=== PATIENT | male | born 1960 | race African-American/Black ===

== ENCOUNTER 2025-02-19 16:29 | Observation (INO) | payer OTHER ==
[~2025-02-19] VITALS: Ht 172.7 cm; Wt 83.3 kg
[2025-02-19] MEDS ORDERED: ROSU5TAB49 PO (16:58)
[2025-02-19 17:36] LABS: BASO # 0.0 10^3/uL (0.0-0.2); BASO % 0.3 % (0.0-1.0); EOS # 0.0 10^3/uL (0.0-0.5); EOS % 0.2 % (0.0-3.0); LYMPH # 0.8 10^3/uL (1.5-5.0); LYMPH % 6.9 % (24.0-44.0); MONO # 0.7 10^3/uL (0.0-0.8); MONO % 5.8 % (2.0-8.0); NEUTROPHILS # 10.0 10^3/uL (1.5-8.5); NEUTROPHILS % 86.5 % (36.0-66.0); PLATELET COUNT, AUTOMATED 157 10^3/uL (150-450)
[2025-02-19 18:05] LABS: CALCIUM LEVEL 8.7 MG/DL (8.3-10.6); CARBON DIOXIDE LEVEL 32 MMOL/L (20-31); CHLORIDE LEVEL 100 MMOL/L (98-107); CREATININE FOR GFR 0.94 MG/DL (0.70-1.30); GLOMERULAR FILTRATION RATE > 90.0 (>49); POTASSIUM SERUM 4.2 MMOL/L (3.5-5.1); SODIUM LEVEL 141 MMOL/L (136-145)
[2025-02-19] MEDS ORDERED: ISOVUE-370 76% 100 ML VIAL As Ordered ONE (18:10)
[2025-02-19 19:00] LABS: CK-MB VALUE MASS < 1.0 NG/ML (<3.6)
[2025-02-19 19:02] LABS: CPK CREATINE PHOSPHOKINASE 206 U/L (46-171)
[2025-02-19] MEDS ORDERED: MOM 30 ML SUSPENSION UDC PO PRN (19:20)
[2025-02-19] MEDS ORDERED: MV-M1TAB59 PO (19:36)
[2025-02-19] MEDS ORDERED: VITA1TAB35 PO (19:36)
[2025-02-19] MEDS ORDERED: HOME MED LIST COMPLETE! XX SCH (19:40)
[2025-02-19 20:30] LABS: INR 1.16
[2025-02-19 21:26] VITALS: BP 118/80; TEMP 98; O2SAT 95
[2025-02-19] MEDS: APIXABAN 5 MG TAB PO SCH (21:31)
[2025-02-20 00:10] VITALS: BP 118/63; TEMP 97.9; O2SAT 97
[2025-02-20 04:36] VITALS: BP 129/67; TEMP 98.8; O2SAT 94
[2025-02-20 07:15] LABS: PLATELET COUNT, AUTOMATED 155 10^3/uL (150-450)
[2025-02-20 07:42] LABS: ALT/SGPT 24 U/L (7.0-40); AST/SGOT 21 U/L (<34); CALCIUM LEVEL 8.4 MG/DL (8.3-10.6); CARBON DIOXIDE LEVEL 30 MMOL/L (20-31); CHLORIDE LEVEL 103 MMOL/L (98-107); CREATININE FOR GFR 0.84 MG/DL (0.70-1.30); GLOMERULAR FILTRATION RATE > 90.0 (>49); MAGNESIUM LEVEL 2.0 MG/DL (1.8-2.4); POTASSIUM SERUM 3.7 MMOL/L (3.5-5.1); SODIUM LEVEL 142 MMOL/L (136-145)
[2025-02-20 08:24] VITALS: BP 127/71; TEMP 98.9; O2SAT 93
[2025-02-20 12:35] VITALS: BP 123/72; TEMP 99.7; O2SAT 91
[2025-02-20] MEDS: AUGMENTIN 875 MG TAB PO ONE (14:13)
[2025-02-20 16:11] VITALS: BP 119/56; TEMP 100.4; O2SAT 95
[2025-02-20] MEDS: ACETAMINOPHEN 325 MG TAB PO PRN (16:46)
[2025-02-20 20:07] VITALS: BP 125/82; TEMP 99.9; O2SAT 93
[2025-02-20] MEDS: AUGMENTIN 875 MG TAB PO SCH (20:16)
[2025-02-21 04:41] VITALS: BP 136/65; TEMP 100.3; O2SAT 92
[2025-02-21 07:23] LABS: BASO # 0.0 10^3/uL (0.0-0.2); BASO % 0.4 % (0.0-1.0); EOS # 0.1 10^3/uL (0.0-0.5); EOS % 0.8 % (0.0-3.0); LYMPH # 1.2 10^3/uL (1.5-5.0); LYMPH % 14.1 % (24.0-44.0); MONO # 0.7 10^3/uL (0.0-0.8); MONO % 8.4 % (2.0-8.0); NEUTROPHILS # 6.4 10^3/uL (1.5-8.5); NEUTROPHILS % 76.1 % (36.0-66.0); PLATELET COUNT, AUTOMATED 171 10^3/uL (150-450)
[2025-02-21 07:41] VITALS: TEMP 100.1
[2025-02-21 07:44] LABS: CALCIUM LEVEL 9.2 MG/DL (8.3-10.6); CARBON DIOXIDE LEVEL 30 MMOL/L (20-31); CHLORIDE LEVEL 104 MMOL/L (98-107); CREATININE FOR GFR 0.92 MG/DL (0.70-1.30); GLOMERULAR FILTRATION RATE > 90.0 (>49); POTASSIUM SERUM 4.3 MMOL/L (3.5-5.1); SODIUM LEVEL 142 MMOL/L (136-145)
[2025-02-21] MEDS ORDERED: ELIQ5TAB PO (08:20)
[2025-02-21 08:39] VITALS: BP 135/78; TEMP 99.4; O2SAT 92
[2025-02-21 12:00] VITALS: BP 134/82; TEMP 98.5; O2SAT 96
[2025-02-21] MEDS ORDERED: AMOX875T2 PO (13:21)
[2025-02-21 22:32] LABS: CARDIOLIPIN IGA ANTIBODY < 2.0 APL-U/mL (<20.0); CARDIOLIPIN IGG ANTIBODY < 2.0 GPL-U/mL (<20.0); CARDIOLIPIN IGM ANTIBODY < 2.0 MPL-U/mL (<20.0)
[2025-02-22 22:57] LABS: PROTEIN C FUNCTIONAL ACTIVITY 98 % normal (70-180); PROTEIN S FUNCTIONAL ACTIVITY 50 % normal (70-150)
[2025-02-23 18:01] LABS: PHOSPHOLIPIDS LEVEL 174 mg/dL (151-264)
[2025-02-26 00:19] LABS: ANTI THROMBIN 3 ANTIGEN IMMUNO 96 % normal (80-120); ANTI THROMBIN 3 FUNCT ACTIVITY 105 % normal (80-135)
[2025-02-26 09:52] LABS: DRVV SCREEN 42.8 SECONDS
[2025-02-26 09:54] LABS: PTT LUPUS TYPE ANTICOAG SCREEN 1.06 (0-1.20)
[2025-02-26] MEDS ORDERED: APIXABAN 5 MG TAB PO SCH (21:00)
== END 2025-02-21 15:27 | disposition home or self-care (01) ==
LOC: M ED 16:29 → M ED INP 16:30 → M MSPAV 21:17
PROVIDERS: ADMIT Internal Medicine; ATTEND Student in an Organized Health Care Education/Training Program
DX: I26.99 Other pulmonary embolism without acute cor pulmonale (principal); I82.411 Acute embolism and thrombosis of right femoral vein; I82.431 Acute embolism and thrombosis of right popliteal vein; J98.11 Atelectasis; R91.8 Other nonspecific abnormal finding of lung field; D72.829 Elevated white blood cell count, unspecified; E78.5 Hyperlipidemia, unspecified; R07.1 Chest pain on breathing; R06.02 Shortness of breath
CPT/HCPCS: 36415; 71046; 71275; 74177; 80048; 80053; 82550; 82553; 83735; 83880; 84145; 84311; 84484; 85025; 85027; 85300; 85301; 85303; 85305; 85610; 85652; 85730; 86147; 93005; 93041; 93306; 93970; 94760; 99285; Q9967